=== PATIENT | male | born 1990 | race African-American/Black ===

== ENCOUNTER 2017-08-22 17:48 | Emergency (ER) | payer MEDICAID ==
[2017-08-22] MEDS: HYDROCODONE/APAP (10/325) TAB PO (20:23)
== END 2017-08-22 22:24 | disposition home or self-care (01) ==
LOC: FTE 17:48
DX: S83.92XA Sprain of unspecified site of left knee, initial encounter (principal); V00.131A Fall from skateboard, initial encounter; Y92.9 Unspecified place or not applicable
CPT/HCPCS: 73562; 99283-25

== ENCOUNTER 2018-08-30 19:16 | Emergency (ER) | payer MEDICAID ==
[2018-08-30] MEDS: IBUPROFEN 600 MG TAB PO (22:59)
[2018-08-30] MEDS: HYDROCODONE/APAP (5/325) TAB PO (23:00)
== END 2018-08-31 00:39 | disposition home or self-care (01) ==
LOC: FTE 08-31 00:39
DX: S99.922A Unspecified injury of left foot, initial encounter (principal); W20.8XXA Other cause of strike by thrown, projected or falling object, initial encounter; Y92.9 Unspecified place or not applicable
CPT/HCPCS: 73630; 73630-LT; 73660; 99283-25